=== PATIENT | female | born 1940 | race African-American/Black ===

== ENCOUNTER 2017-12-22 20:25 | Inpatient (IN) | payer MEDICARE, MEDICAID, OTHER ==
[2017-12-22] MEDS: fentaNYL PF VIAL 100 MCG/2 ML VIAL IV ×2 (21:02→21:45)
[2017-12-22] MEDS ORDERED: ONDANSETRON PF 4 MG/2 ML VIAL. (21:40)
[2017-12-22] MEDS: ONDANSETRON PF 4 MG/2 ML VIAL. IV (21:45)
[2017-12-22] MEDS: MORPHINE SULFATE 10 MG/ML VIAL. IV (22:30)
[2017-12-22] MEDS ORDERED: ONDANSETRON PF 4 MG/2 ML VIAL. IV (23:45)
[2017-12-23 06:11] LABS: BASO % 0 % (0-3); EOS % 0 % (0-3); HEMATOCRIT 32.5 % (36.0-47.0); HEMOGLOBIN 10.9 g/dL (12.0-15.5); LYMPH # 2.2 x10^3/uL (1.0-4.8); LYMPH % 23 % (24-48); MEAN CORPUSCULAR HEMOGLOBIN 33 pg (25-35); MEAN CORPUSCULAR HGB CONC 34 g/dL (31-37); MEAN CORPUSCULAR VOLUME 99 fL (79-100); MONO % 21 % (0-9); NEUT # 5.5 x10^3uL (1.8-7.7); NEUT % 56 % (31-73); PLATELET COUNT 188 x10^3/uL (140-400); RED BLOOD COUNT 3.28 x10^6/uL (3.50-5.40); RED CELL DISTRIBUTION WIDTH 16.9 % (11.5-14.5); WHITE BLOOD COUNT 9.8 x10^3/uL (4.0-11.0)
[2017-12-23 06:20] LABS: ADD MAN DIFF? YES
[2017-12-23 06:29] LABS: ANION GAP 10 (6-14); BLOOD UREA NITROGEN 12 mg/dL (7-20); CALCIUM 8.4 mg/dL (8.5-10.1); CARBON DIOXIDE 28 mmol/L (21-32); CHLORIDE 101 mmol/L (98-107); CREATININE 0.8 mg/dL (0.6-1.0); GFR 83.9; GLUCOSE 139 mg/dL (70-99); SODIUM 139 mmol/L (136-145)
[2017-12-23 07:29] LABS: % LYMPHS 31 % (24-48); % MONOS 23 % (0-10); % SEGS 46 % (35-66); PLT ESTIMATE ADEQUATE (ADEQUATE)
[2017-12-23] MEDS: MORPHINE SULFATE 2 MG/ML DISP.SYRIN. IV ×3 (08:03→18:46)
[2017-12-23] MEDS: ACETAMINOPHEN 325 MG TABLET. PO (08:04)
[2017-12-23] MEDS ORDERED: ALBUTEROL SULFATE 8GM INHALER. IH (09:30)
[2017-12-23] MEDS ORDERED: ONDANSETRON PF 4 MG/2 ML VIAL. IV (09:30)
[2017-12-23] MEDS: FLUTICASONE 50MCG/NASAL SPRAY 16GM BOTTLE. NS (11:00)
[2017-12-23] MEDS: POLYVINYL ALCOHOL 1.4% OPHTH SOLUTION 15ML BOTTLE. OU ×4 (11:00→21:11)
[2017-12-23] MEDS: ASPIRIN CHEWABLE 81 MG TABLET. PO (11:01)
[2017-12-23] MEDS: sulfaSALAzine 500 MG TABLET PO ×2 (11:01→21:10)
[2017-12-23] MEDS: FOLIC ACID 1 MG TABLET. PO (11:02)
[2017-12-23] MEDS: METOPROLOL TART IMMED RELEASE 50 MG TABLET. PO ×2 (11:03→21:10)
[2017-12-23] MEDS: ISOSORBIDE MONONITRATE ER 30 MG TAB.ER.24H PO (11:03)
[2017-12-23] MEDS: HYDROXYCHLOROQUINE 200 MG TABLET PO (11:04)
[2017-12-23] MEDS: PARoxetine 10 MG TABLET PO (11:04)
[2017-12-23] MEDS: NAPROXEN 500 MG TABLET PO ×2 (11:04→21:10)
[2017-12-23] MEDS: CLOPIDOGREL BISULFATE 75 MG TABLET PO (11:05)
[2017-12-23] MEDS: PANTOPRAZOLE 40 MG TABLET.DR. PO (11:06)
[2017-12-23] MEDS: predniSONE 5 MG TABLET PO (11:06)
[2017-12-23] MEDS: HYDROcodone/APAP 5/325MG 1 TAB TABLET PO (11:27)
[2017-12-23] MEDS: CETIRIZINE HCL 10 MG TABLET. PO (11:27)
[2017-12-23] MEDS: ALBUTEROL SULFATE 2.5 MG/3 ML NEBU. NEB ×2 (12:12→18:12)
[2017-12-23] MEDS: CAPSAICIN 0.025% TOPICAL CREAM 60GM TUBE. TP ×2 (14:15→21:13)
[2017-12-23 18:55] LABS: BILIRUBIN,URINE SMALL (NEG); CLARITY,URINE CLOUDY; COLOR,URINE AMBER; GLUCOSE,URINE NEGATIVE (NEG); NITRITE,URINE NEGATIVE (NEG); PH,URINE 5.5; PROTEIN,URINE NEGATIVE (NEG-TRACE); UROBILINOGEN,URINE 0.2 mg/dL (0.2 mg/dL)
[2017-12-23 19:07] LABS: BACTERIA,URINE MANY /HPF (0-FEW); SQUAMOUS EPITHELIAL CELL,UR FEW /LPF; WBC,URINE 20-40 /HPF (0-4)
[2017-12-23 19:08] LABS: HYALINE CASTS, URINE MODERATE /HPF
[2017-12-23] MEDS: ATORVASTATIN CALCIUM 20 MG TABLET PO (21:10)
[2017-12-24] MEDS: HYDROcodone/APAP 5/325MG 1 TAB TABLET PO (07:54)
[2017-12-24] MEDS: PANTOPRAZOLE 40 MG TABLET.DR. PO (07:54)
[2017-12-24] MEDS: sulfaSALAzine 500 MG TABLET PO ×2 (09:01→21:21)
[2017-12-24] MEDS: PARoxetine 10 MG TABLET PO (09:01)
[2017-12-24] MEDS: CETIRIZINE HCL 10 MG TABLET. PO (09:03)
[2017-12-24] MEDS: ASPIRIN CHEWABLE 81 MG TABLET. PO (09:03)
[2017-12-24] MEDS: ISOSORBIDE MONONITRATE ER 30 MG TAB.ER.24H PO (09:03)
[2017-12-24] MEDS: HYDROXYCHLOROQUINE 200 MG TABLET PO (09:03)
[2017-12-24] MEDS: METOPROLOL TART IMMED RELEASE 50 MG TABLET. PO ×2 (09:04→21:24)
[2017-12-24] MEDS: NAPROXEN 500 MG TABLET PO ×2 (09:04→21:23)
[2017-12-24] MEDS: FOLIC ACID 1 MG TABLET. PO (09:05)
[2017-12-24] MEDS: predniSONE 5 MG TABLET PO (09:05)
[2017-12-24] MEDS: FLUTICASONE 50MCG/NASAL SPRAY 16GM BOTTLE. NS (09:06)
[2017-12-24] MEDS: POLYVINYL ALCOHOL 1.4% OPHTH SOLUTION 15ML BOTTLE. OU ×4 (09:21→21:24)
[2017-12-24] MEDS: CAPSAICIN 0.025% TOPICAL CREAM 60GM TUBE. TP ×3 (09:21→21:24)
[2017-12-24] MEDS: LACTOBACILLUS RHAMNOSUS GG 1 CAPSULE. PO ×2 (09:41→21:00)
[2017-12-24] MEDS: cefTRIAXone IV Push 1 GM VIAL. IVP (09:41)
[2017-12-24] MEDS: POTASSIUM CHLORIDE 20 MEQ TABLET.ER. PO ×2 (10:59→11:37)
[2017-12-24 13:27] LABS: POTASSIUM 3.5 mmol/L (3.5-5.1)
[2017-12-24] MEDS: ACETAMINOPHEN/CODEINE 300/30MG TABLET. PO (15:15)
[2017-12-24] MEDS: ATORVASTATIN CALCIUM 20 MG TABLET PO (21:21)
[2017-12-25] MEDS: PANTOPRAZOLE 40 MG TABLET.DR. PO (07:48)
[2017-12-25 08:09] LABS: POC GLUCOSE 88 mg/dL (70-99)
[2017-12-25] MEDS: POLYVINYL ALCOHOL 1.4% OPHTH SOLUTION 15ML BOTTLE. OU ×2 (08:59→13:00)
[2017-12-25] MEDS: CETIRIZINE HCL 10 MG TABLET. PO (09:00)
[2017-12-25] MEDS: FLUTICASONE 50MCG/NASAL SPRAY 16GM BOTTLE. NS (09:00)
[2017-12-25] MEDS: LACTOBACILLUS RHAMNOSUS GG 1 CAPSULE. PO (09:00)
[2017-12-25] MEDS: CAPSAICIN 0.025% TOPICAL CREAM 60GM TUBE. TP ×2 (09:00→13:15)
[2017-12-25] MEDS: PARoxetine 10 MG TABLET PO (09:00)
[2017-12-25] MEDS: sulfaSALAzine 500 MG TABLET PO (09:00)
[2017-12-25] MEDS: NAPROXEN 500 MG TABLET PO (09:01)
[2017-12-25] MEDS: HYDROXYCHLOROQUINE 200 MG TABLET PO (09:01)
[2017-12-25] MEDS: ASPIRIN CHEWABLE 81 MG TABLET. PO (09:01)
[2017-12-25] MEDS: predniSONE 5 MG TABLET PO (09:01)
[2017-12-25] MEDS: METOPROLOL TART IMMED RELEASE 50 MG TABLET. PO (09:01)
[2017-12-25] MEDS: FOLIC ACID 1 MG TABLET. PO (09:01)
[2017-12-25] MEDS: ISOSORBIDE MONONITRATE ER 30 MG TAB.ER.24H PO (09:01)
[2017-12-25] MEDS: cefTRIAXone IV Push 1 GM VIAL. IVP (09:02)
[2017-12-25] MEDS ORDERED: CEFPODOXIME PROXETIL 100 MG TABLET. PO (21:00)
[2018-01-22] MEDS ORDERED: GOLIMUMAB 50 MG SUBCUT (09:00)
== END 2017-12-25 15:31 | disposition home or self-care (01) | DRG 872 ==
LOC: ER 20:25 → 5 NORTH 22:57
DX: A41.9 Sepsis, unspecified organism (principal); N39.0 Urinary tract infection, site not specified; I10 Essential (primary) hypertension; M16.12 Unilateral primary osteoarthritis, left hip; I25.10 Atherosclerotic heart disease of native coronary artery without angina pectoris; Z79.82 Long term (current) use of aspirin; Z79.899 Other long term (current) drug therapy; Z96.653 Presence of artificial knee joint, bilateral; Z83.3 Family history of diabetes mellitus; Z86.711 Personal history of pulmonary embolism; Z86.73 Personal history of transient ischemic attack (TIA), and cerebral infarction without residual deficits; Z90.710 Acquired absence of both cervix and uterus; Z95.1 Presence of aortocoronary bypass graft
CPT/HCPCS: 36415; 71045; 72192; 73502; 73552; 80048; 81001; 82962; 84132; 85007; 85025; 87086; 87186; 94640; 97161-GP; 97166-GO; J0696; J2270; J2405; J3010; J7512; J7613

== ENCOUNTER 2018-01-25 09:35 | Emergency (ER) | payer MEDICARE, MEDICAID ==
[2018-01-25 11:16] LABS: ADD MAN DIFF? NO
[2018-01-25 11:19] LABS: BASO # 0.1 x10^3/uL (0.0-0.2); BASO % 1 % (0-3); EOS # 0.1 x10^3/uL (0.0-0.7); EOS % 1 % (0-3); HEMATOCRIT 36.5 % (36.0-47.0); HEMOGLOBIN 12.1 g/dL (12.0-15.5); LYMPH # 2.1 x10^3/uL (1.0-4.8); LYMPH % 24 % (24-48); MEAN CORPUSCULAR HEMOGLOBIN 33 pg (25-35); MEAN CORPUSCULAR HGB CONC 33 g/dL (31-37); MEAN CORPUSCULAR VOLUME 98 fL (79-100); MONO % 11 % (0-9); NEUT # 5.6 x10^3uL (1.8-7.7); NEUT % 64 % (31-73); PLATELET COUNT 204 x10^3/uL (140-400); RED BLOOD COUNT 3.73 x10^6/uL (3.50-5.40); RED CELL DISTRIBUTION WIDTH 17.5 % (11.5-14.5); WHITE BLOOD COUNT 8.8 x10^3/uL (4.0-11.0)
[2018-01-25 11:29] LABS: ANION GAP 11 (6-14); BLOOD UREA NITROGEN 10 mg/dL (7-20); BUN/CREATININE RATIO 11 (6-20); CALCIUM 9.5 mg/dL (8.5-10.1); CARBON DIOXIDE 29 mmol/L (21-32); CHLORIDE 97 mmol/L (98-107); CREATININE 0.9 mg/dL (0.6-1.0); GFR 73.3; GLUCOSE 102 mg/dL (70-99); POTASSIUM 3.5 mmol/L (3.5-5.1); SODIUM 137 mmol/L (136-145)
[2018-01-25 11:37] LABS: ALBUMIN 3.5 g/dL (3.4-5.0); ALBUMIN/GLOBULIN RATIO 0.8 (1.0-1.7); ALK PHOS 92 U/L (46-116); ALT (SGPT) 23 U/L (14-59); AST (SGOT) 23 U/L (15-37); TOTAL PROTEIN 7.7 g/dL (6.4-8.2)
== END 2018-01-25 12:20 | disposition home or self-care (01) ==
LOC: ER 09:35
DX: R19.7 Diarrhea, unspecified (principal); R11.10 Vomiting, unspecified; R10.13 Epigastric pain; E78.00 Pure hypercholesterolemia, unspecified; I10 Essential (primary) hypertension; I25.10 Atherosclerotic heart disease of native coronary artery without angina pectoris; Z86.73 Personal history of transient ischemic attack (TIA), and cerebral infarction without residual deficits; Z90.49 Acquired absence of other specified parts of digestive tract; Z95.1 Presence of aortocoronary bypass graft
CPT/HCPCS: 36415; 74018; 80053; 85025; 99285-25

== ENCOUNTER → 2019-03-06 | Outpatient (CLI) | payer MEDICARE, OTHER ==
[2018-01-25 12:10] VITALS: BP 142/64
[~2019-03-06] MED LIST: ACET1TAB33 PO; ALBU2.5V8 INFIL; ASPI-630 PO; ATOR20TA58 PO; CETI10TA16 PO; CIPR500T94 PO; CLOP75TA PO; CYAN10005 PO; FLUT9.9S NS; FOLI1TAB16 PO; GOLI50DI SUBCUT; HYDR-3164 PO; HYDR200T71 PO; ISOS30TA4 PO; LANS30CA66 PO; METH2.5T PO; METO50TA6 PO; PANT20TA2 PO; PARO10TA57 PO; PRED-299 PO; PROP10DR3 EACHEYE; SPIR25TA PO; SULF500T PO; SULF500T7 PO
--- NOTE | 2019-03-06 12:12 | KCIC ---
EXAM: Dual energy x-ray absorptiometry (DEXA). HISTORY: Postmenopausal female presents for osteoporosis screening. COMPARISON: None. TECHNIQUE: Dual energy x-ray absorptiometry of the lumbar spine and left hip was performed. Calculation of bone mineral density based on standard deviations above or below the expected young adult normal value (T-score) was completed. FINDINGS: The average bone mineral density in the 1st through 4th lumbar vertebrae is 1.095 g/cmxcm, corresponding with a T-score of 0.4. The average total bone mineral density in the left hip is 0.857 g/cmxcm, corresponding with a T-score of -0.7. IMPRESSION: Normal bone mineral density. Note: Definitions established by the World Health Organization: 1. Normal: T-score is -1.0 or above. 2. Osteopenia: T-score is between -1.0 and -2.5 . 3. Osteoporosis: T-score is -2.5 or below. Electronically signed by: Bouchra Borjas MD (03/06/2019 12:09 PM) [facility]
== END | disposition home or self-care (01) ==
LOC: KCIC DEXA 09:48
PROVIDERS: ATTEND Internal Medicine
DX: M05.79 Rheumatoid arthritis with rheumatoid factor of multiple sites without organ or systems involvement (principal); Z79.52 Long term (current) use of systemic steroids; Z78.0 Asymptomatic menopausal state
CPT/HCPCS: 77080

== ENCOUNTER 2019-05-14 22:40 | Emergency (ER) | payer MEDICARE ==
[~2019-05-14] VITALS: Ht 152.4 cm; Wt 77.1 kg
[2019-05-14] MEDS ORDERED: amLODIPine BESYLATE 5 MG TABLET PO ONE (23:15)
[2019-05-14] MEDS ORDERED: LORazepam 0.5 MG TABLET PO ONE (23:15)
--- NOTE | 2019-05-14 23:33 | RAD ---
AP chest. HISTORY: Short of breath, cough, hypertension AP view was taken of the chest. Lungs are clear. Heart is normal in size with evidence of prior bypass. There is no effusion. There is arthritis in both shoulders. IMPRESSION: 1. No acute chest disease. Electronically signed by: Israel Solorzano MD (05/14/2019 11:30 PM) [facility]
[2019-05-14 23:54] LABS: BASO # 0.1 x10^3/uL (0.0-0.2); BASO % 1 % (0-3); EOS # 0.1 x10^3/uL (0.0-0.7); EOS % 1 % (0-3); HEMATOCRIT 36.5 % (36.0-47.0); HEMOGLOBIN 12.2 g/dL (12.0-15.5); LYMPH # 1.7 x10^3/uL (1.0-4.8); LYMPH % 24 % (24-48); MEAN CORPUSCULAR HEMOGLOBIN 34 pg (25-35); MEAN CORPUSCULAR HGB CONC 34 g/dL (31-37); MEAN CORPUSCULAR VOLUME 102 fL (79-100); MONO # 0.6 x10^3/uL (0.0-1.1); MONO % 8 % (0-9); NEUT # 4.9 x10^3uL (1.8-7.7); NEUT % 67 % (31-73); PLATELET COUNT 211 x10^3/uL (140-400); RED BLOOD COUNT 3.59 x10^6/uL (3.50-5.40); RED CELL DISTRIBUTION WIDTH 17.1 % (11.5-14.5); WHITE BLOOD COUNT 7.3 x10^3/uL (4.0-11.0)
[2019-05-15 00:05] LABS: CALCIUM 9.6 mg/dL (8.5-10.1); GFR 64.7; POTASSIUM 4.3 mmol/L (3.5-5.1)
[2019-05-15 00:11] LABS: ALBUMIN 3.8 g/dL (3.4-5.0); ALBUMIN/GLOBULIN RATIO 0.9 (1.0-1.7); TOTAL BILIRUBIN 0.4 mg/dL (0.2-1.0); TOTAL PROTEIN 8.1 g/dL (6.4-8.2)
[2019-05-15 00:23] VITALS: BP 125/66
--- NOTE | 2019-05-15 01:48 | PHYS DOC ---
Past Medical History Past Medical History: Arthritis, CAD, COPD, High Cholesterol, Hypertension, TIA, Other Additional Past Medical Histor: chronic cough Past Surgical History: Cholecystectomy, Coronary Bypass Surgery, Hysterectomy, Knee Replacement, Other Additional Past Surgical Histo: BACK,RIGHT SHOULDER, CARPAL TUNNEL Alcohol Use: None Drug Use: None Adult General Chief Complaint Chief Complaint: HYPERTENSION HPI HPI Patient is a 78 year old female brought in by ambulance with elevated blood pressure in the 170 range felt shaky no chest pain had a mild headache that is resolving no shortness of breath really she is a little bit of anxiety She had elevated blood pressure couple years back but she has not been getting treatment for recently. Review of Systems Review of Systems Constitutional: Denies fever or chills [] Eyes: Denies change in visual acuity, redness, or eye pain [] Musculoskeletal: Denies back pain or joint pain [] Integument: Denies rash or skin lesions [] All other systems were reviewed and found to be within normal limits, except as documented in this note. Current Medications Current Medications Current Medications Medications (Trade) Dose Ordered Sig/Zan Start Time Stop Time Status Last Admin Dose Admin Amlodipine Besylate (Norvasc) 10 mg 1X ONCE 05/14/19 23:15 05/14/19 23:16 DC 05/14/19 23:08 10 MG Lorazepam (Ativan) 1 mg 1X ONCE 05/14/19 23:15 05/14/19 23:16 DC 05/14/19 23:04 1 MG Allergies Allergies Allergies Coded Allergies Type Severity Reaction Last Updated Verified No Known Drug Allergies 10/06/16 No Physical Exam Physical Exam Constitutional: Well developed, well nourished, no acute distress, non-toxic appearance. [] HENT: Normocephalic, atraumatic, bilateral external ears normal, oropharynx moist, no oral exudates, nose normal. [] Eyes: PERRLA, EOMI, conjunctiva normal, no discharge. [] Neck: Normal range of motion, no tenderness, supple, no stridor. [] Cardiovascular:Heart rate regular rhythm, no murmur [] Lungs & Thorax: Bilateral breath sounds clear to auscultation [] Abdomen: Bowel sounds normal, soft, no tenderness, no masses, no pulsatile masses. [] Skin: Warm, dry, no erythema, no rash. [] Back: No tenderness, no CVA tenderness. [] Extremities: No tenderness, no cyanosis, no clubbing, ROM intact, no edema. [] Neurologic: Alert and oriented X 3, normal motor function, normal sensory function, no focal deficits noted. [] Psychologic: Affect normal, judgement normal, mood normal. [] Current Patient Data Vital Signs Vital Signs Date Time Temp Pulse Resp B/P (MAP) Pulse Ox O2 Delivery O2 Flow Rate FiO2 05/15/19 00:23 78 98 05/14/19 23:08 182/84 05/14/19 22:40 97.8 18 Room Air 97.8 Lab Values Laboratory Tests Test 05/14/19 23:45 White Blood Count 7.3 x10^3/uL (4.0-11.0) Red Blood Count 3.59 x10^6/uL (3.50-5.40) Hemoglobin 12.2 g/dL (12.0-15.5) Hematocrit 36.5 % (36.0-47.0) Mean Corpuscular Volume 102 fL (79-100) H Mean Corpuscular Hemoglobin 34 pg (25-35) Mean Corpuscular Hemoglobin Concent 34 g/dL (31-37) Red Cell Distribution Width 17.1 % (11.5-14.5) H Platelet Count 211 x10^3/uL (140-400) Neutrophils (%) (Auto) 67 % (31-73) Lymphocytes (%) (Auto) 24 % (24-48) Monocytes (%) (Auto) 8 % (0-9) Eosinophils (%) (Auto) 1 % (0-3) Basophils (%) (Auto) 1 % (0-3) Neutrophils # (Auto) 4.9 x10^3uL (1.8-7.7) Lymphocytes # (Auto) 1.7 x10^3/uL (1.0-4.8) Monocytes # (Auto) 0.6 x10^3/uL (0.0-1.1) Eosinophils # (Auto) 0.1 x10^3/uL (0.0-0.7) Basophils # (Auto) 0.1 x10^3/uL (0.0-0.2) Sodium Level 137 mmol/L (136-145) Potassium Level 4.3 mmol/L (3.5-5.1) Chloride Level 102 mmol/L (98-107) Carbon Dioxide Level 25 mmol/L (21-32) Anion Gap 10 (6-14) Blood Urea Nitrogen 16 mg/dL (7-20) Creatinine 1.0 mg/dL (0.6-1.0) Estimated GFR (Cockcroft-Gault) 64.7 BUN/Creatinine Ratio 16 (6-20) Glucose Level 147 mg/dL (70-99) H Calcium Level 9.6 mg/dL (8.5-10.1) Total Bilirubin 0.4 mg/dL (0.2-1.0) Aspartate Amino Transferase (AST) 27 U/L (15-37) Alanine Aminotransferase (ALT) 28 U/L (14-59) Alkaline Phosphatase 109 U/L (46-116) Troponin I Quantitative < 0.017 ng/mL (0.000-0.055) Total Protein 8.1 g/dL (6.4-8.2) Albumin 3.8 g/dL (3.4-5.0) Albumin/Globulin Ratio 0.9 (1.0-1.7) L Laboratory Tests 05/14/19 23:45 Laboratory Tests 05/14/19 23:45 EKG EKG [] Interpretation Time: No acute ischemic changes noted interpreted by me the time of encounter. Radiology/Procedures Radiology/Procedures AP view was taken of the chest. Lungs are clear. Heart is normal in size with evidence of prior bypass. There is no effusion. There is arthritis in both shoulders. IMPRESSION: 1. No acute chest disease. Electronically signed by: Kevin Way MD (05/14/2019 11:30 PM) [facility] DICTATED and SIGNED BY: KEVIN WAY MD DATE: 05/14/19 8108 [] Course & Med Decision Making Course & Med Decision Making Pertinent Labs and Imaging studies reviewed. (See chart for details) []78-year-old female presenting with some elevated blood pressure she felt a little shaky labs look good patient felt better after amlodipine basic ER workup was negative reassured recommended follow-up with primary care doctor for recheck a blood pressure to decide whether or not to take blood pressure medicine on a regular basis Dragon Disclaimer Dragon Disclaimer This electronic medical record was generated, in whole or in part, using a voice recognition dictation system. Departure Departure Impression: Primary Impression: Hypertension Disposition: 01 HOME, SELF-CARE Condition: STABLE Patient Instructions: Hypertension, [id number] CAMILLE VIZCARRA MD May 15, 2019 01:48
== END 2019-05-15 00:41 | disposition home or self-care (01) ==
LOC: ER 22:40
DX: I10 Essential (primary) hypertension (principal); R51 Headache; R25.1 Tremor, unspecified; F41.9 Anxiety disorder, unspecified; J44.9 Chronic obstructive pulmonary disease, unspecified; E78.00 Pure hypercholesterolemia, unspecified; I25.10 Atherosclerotic heart disease of native coronary artery without angina pectoris; Z86.73 Personal history of transient ischemic attack (TIA), and cerebral infarction without residual deficits; Z95.1 Presence of aortocoronary bypass graft
CPT/HCPCS: 36415; 71045; 80053; 84484; 85025; 99285-25